=== PATIENT | male | born 1975 | race African-American/Black ===

== ENCOUNTER 2017-06-24 19:55 | Emergency (ER) | payer OTHER, MEDICARE ==
[~2017-06-24] VITALS: Ht 177.8 cm; Wt 87.0 kg
[2017-06-24 20:37] VITALS: BP 153/95
== END 2017-06-25 00:33 | disposition left against medical advice (07) ==
LOC: ER 19:55
DX: Z53.21 Procedure and treatment not carried out due to patient leaving prior to being seen by health care provider (principal)